=== PATIENT | male | born 1955 | race Caucasian/White ===

== ENCOUNTER 2022-06-07 15:01 | Emergency (ER) | payer MEDICARE ==
[2022-06-07] MEDS ORDERED: CEPHALEXIN500 M1 PO (17:12)
[2022-06-07] MEDS ORDERED: HYDROCO/APAP1 T10 PO (17:12)
[2022-06-07 17:24] VITALS: BP 136/82
== END 2022-06-07 17:50 | disposition home or self-care (01) ==
LOC: ED 15:01
PROC: 0HQGXZZ Repair Left Hand Skin, External Approach (ICD-10-PCS; principal; 2022-06-07)
DX: S61.112A Laceration without foreign body of left thumb with damage to nail, initial encounter (principal); S62.525A Nondisplaced fracture of distal phalanx of left thumb, initial encounter for closed fracture; W31.89XA Contact with other specified machinery, initial encounter; Y92.009 Unspecified place in unspecified non-institutional (private) residence as the place of occurrence of the external cause

== ENCOUNTER 2024-05-27 19:59 | Emergency (ER) | payer MEDICARE ==
[~2024-05-27] VITALS: Ht 182.9 cm; Wt 83.0 kg
[~2024-05-27 19:59] MED LIST: CEPHALEXIN500 M1 PO; HYDROCO/APAP1 T10 PO
[2024-05-27] MEDS ORDERED: TETRACAINE HCL 0.5 %/4 ML SOL OD ONE (20:25)
[2024-05-27] MEDS ORDERED: FLUORESCEIN SODIUM 1 MG EA OD ONE (20:25)
[2024-05-27] MEDS ORDERED: ERYTHROMYCIN OPTHALMIC 5 MG/GM TUBE OD ONE (20:35)
[2024-05-27] MEDS ORDERED: TOBRAMYCIN SULFATE 0.3% OD ONE (20:35)
[2024-05-27] MEDS ORDERED: TOBREX OPTH5 ML/BTL OD (20:38)
[2024-05-27 20:45] VITALS: BP 146/80
== END 2024-05-27 21:03 | disposition home or self-care (01) ==
LOC: ED 19:59
DX: S05.02XA Injury of conjunctiva and corneal abrasion without foreign body, left eye, initial encounter (principal); X58.XXXA Exposure to other specified factors, initial encounter